=== PATIENT | female | born 1950 | race Two or more races ===

== ENCOUNTER → 2025-01-25 08:02 | Outpatient (CLI) | payer OTHER ==
[2025-01-25 09:04] LABS: URINE APPEARANCE Clear; URINE BILIRRUBIN Negative (NEGATIVE); URINE BLOOD Negative; URINE COLOR Yellow; URINE GLUCOSE Negative (NEGATIVE); URINE KETONE Negative (NEGATIVE); URINE LEUKOCYTE Trace; URINE NITRATE Negative; URINE PROTEIN Negative (NEGATIVE); URINE UROBILINOGEN 0.2 E.U./dl
[2025-01-25 09:09] LABS: URINE EPITHELIAL CELLS 3.9 uL (0.0-38.8)
[2025-01-25 09:11] LABS: HEMATOCRIT 39.6 % (36.0-45.00); HEMOGLOBIN 13.1 g/dL (12.0-15.00); MEAN CELL VOLUME 91.7 fL (80.00-100.00); MEAN CORPUSCULAR HEMOGLOBIN 30.4 pg (27.00-32.0); MEAN CORPUSCULAR HGB CONC 33.1 g/dl (32.0-36.0); PLATELET COUNT 186 K/uL (150-450); RED BLOOD COUNT 4.31 M/uL (4.00-6.00); RED CELL DISTRIBUTION WIDTH 14.7 % (11.5-14.5); URINE BACTERIA 3.6 uL (0.0-1933); URINE RBC 1.7 uL (0.0-20.8); URINE WBC 1.7 uL (0.0-23.2)
[2025-01-25 09:52] LABS: INR 1.06; PARTIAL THROMBOPLASTIN TIME 28.8 SECONDS (22.0-34.0); PROTHROMBIN TIME 11.5 SECONDS (9.0-11.5)
[2025-01-25 09:53] LABS: ALBUMIN 3.7 gm/dL (3.4-5.0); BILIRUBIN TOTAL 0.45 mg/dL (0.3-1.2); CALCIUM 9.6 mg/dL (8.5-10.1); CREATININE SERUM 1.14 mg/dL (0.55-1.02); GFR 46.46; GLOBULINA 3.4 G/DL (2.4-3.5); POTASSIUM 4.79 mEq/L (3.5-5.1); TOTAL PROTEIN 7.1 gm/dL (6.4-8.2)
== END | disposition home or self-care (01) ==
LOC: LAB 08:02
PROVIDERS: ATTEND Surgery
DX: K57.32 Diverticulitis of large intestine without perforation or abscess without bleeding (principal); K57.20 Diverticulitis of large intestine with perforation and abscess without bleeding; R10.32 Left lower quadrant pain

== ENCOUNTER 2025-01-29 09:30 | Inpatient (IN) | payer OTHER ==
[~2025-01-29] VITALS: Ht 165.1 cm; Wt 64.9 kg
[2025-01-29] MEDS ORDERED: AMIODARONE HCL400 MG PO (13:53)
[2025-01-29] MEDS ORDERED: ELIQUIS5 MG PO (13:53)
[2025-01-29] MEDS ORDERED: HYDROCHLOROTHIA25 MG PO (13:53)
[2025-01-29] MEDS ORDERED: TOPROL XL25 M1 PO (13:53)
[2025-02-04] MEDS ORDERED: CEFTRIAXONE SODIUM 2,000 MG VIAL ONE (07:52)
[2025-02-04] MEDS ORDERED: METRONIDAZOLE/SODIUM CHLORIDE 500 MG/100 ML PIGGYBACK IV ONE ×2 (07:53→16:27)
[2025-02-04] MEDS ORDERED: 0.9 % SODIUM CHLORIDE 1,000 ML IV SCH (12:45)
[2025-02-04] MEDS ORDERED: DEXTROSE 50 % IN WATER 0.5 G/ML VIAL IV PRN (12:45)
[2025-02-04] MEDS ORDERED: MORPHINE SULFATE 4 MG/ML CARTRIDGE IV PRN (12:45)
[2025-02-04] MEDS ORDERED: ENALAPRILAT DIHYDRATE 1.25 MG/ML VIAL IV PRN (12:45)
[2025-02-04] MEDS ORDERED: ONDANSETRON HCL 2 MG/ML VIAL IV PRN (12:45)
[2025-02-04] MEDS ORDERED: OxyCODONE HCL 5 MG TABLET (ROXICODONE) PO PRN (12:45)
[2025-02-04] MEDS ORDERED: HYOSCYAMINE SULFATE 0.125 MG TAB.SUBL SL SCH (13:00)
[2025-02-04] MEDS ORDERED: ENALAPRILAT DIHYDRATE 1.25 MG/ML VIAL IV ONE (13:25)
[2025-02-04] MEDS ORDERED: ACETAMINOPHEN 500 MG GEL..CAP PO SCH (14:00)
[2025-02-04] MEDS ORDERED: PROMETHAZINE HCL 25 MG/ML AMPUL ONE (14:31)
[2025-02-04] MEDS ORDERED: MEPERIDINE HCL/PF 25 MG/ML VIAL IM STA (14:32)
[2025-02-04] MEDS ORDERED: PROMETHAZINE HCL 25 MG/ML AMPUL IM STA (14:32)
[2025-02-04] MEDS ORDERED: GABAPENTIN 300 MG CAPSULE PO ONE (16:26)
[2025-02-04] MEDS ORDERED: HYOSCYAMINE SULFATE 0.125 MG TAB.SUBL ONE (16:26)
[2025-02-04] MEDS ORDERED: POLYETHYLENE GLYCOL 3350 17 GM BLIST.PACK PO SCH (17:00)
[2025-02-04] MEDS ORDERED: METRONIDAZOLE/SODIUM CHLORIDE 500 MG/100 ML PIGGYBACK IV SCH (17:00)
[2025-02-04] MEDS ORDERED: GABAPENTIN 300 MG CAPSULE PO SCH (17:00)
[2025-02-04 18:20] VITALS: BP 184/77; O2SAT 96
[2025-02-04] MEDS ORDERED: CELECOXIB 200 MG CAPSULE PO SCH (21:00)
[2025-02-04] MEDS ORDERED: METOPROLOL SUCCINATE 25 MG TAB.SR.24H PO SCH (21:00)
[2025-02-04] MEDS ORDERED: FAMOTIDINE/PF 20 MG/2 ML VIAL IV PUSH SCH (21:00)
[2025-02-05] VITALS: BP 162/71; O2SAT 92
[2025-02-05 07:04] LABS: HEMATOCRIT 33.9 % (36.0-45.00); HEMOGLOBIN 11.5 g/dL (12.0-15.00); MEAN CELL VOLUME 89.5 fL (80.00-100.00); MEAN CORPUSCULAR HEMOGLOBIN 30.4 pg (27.00-32.0); PLATELET COUNT 235 K/uL (150-450); RED BLOOD COUNT 3.78 M/uL (4.00-6.00)
[2025-02-05 07:49] LABS: CALCIUM 8.1 mg/dL (8.5-10.1); CREATININE SERUM 0.86 mg/dL (0.55-1.02); GFR 64.32; MAGNESIUM 1.5 mg/dL (1.8-2.4); PHOSPHOROUS 2.9 mg/dL (2.5-4.9); POTASSIUM 4.2 mEq/L (3.5-5.1)
[2025-02-05 08:47] VITALS: BP 105/61; O2SAT 95
[2025-02-05] MEDS ORDERED: HYDROCHLOROTHIAZIDE 25 MG TABLET PO SCH (09:00)
[2025-02-05] MEDS ORDERED: AMIODARONE HCL 200 MG TABLET PO SCH (09:00)
[2025-02-05] MEDS ORDERED: MAGNESIUM SULFATE IN WATER 50 ML IV NR (10:00)
[2025-02-05 16:00] VITALS: BP 109/47; O2SAT 94
[2025-02-05] MEDS ORDERED: GABAPENTIN 100 MG CAPSULE PO SCH (17:00)
[2025-02-05] MEDS ORDERED: ENOXAPARIN SODIUM 40 MG/0.4 ML SYRINGE SUBCUTANEO SCH (17:00)
[2025-02-05] MEDS ORDERED: GABAPENTIN 300 MG CAPSULE PO SCH (21:00)
[2025-02-06 02:01] VITALS: BP 123/73; O2SAT 100
[2025-02-06] MEDS ORDERED: ENOXAPARIN SODIUM 40 MG/0.4 ML SYRINGE SUBCUTANEO SCH (09:00)
[2025-02-06 09:24] VITALS: BP 160/66; O2SAT 95
[2025-02-06 16:00] VITALS: BP 170/88; O2SAT 95
[2025-02-06 16:13] LABS: BASO % 0.3 % (0.1-1.2); EOS % 2.5 % (0.7-7.0); HEMATOCRIT 33.6 % (34.1-44.9); HEMOGLOBIN 11.4 g/dL (11.2-15.7); LYMPH # 1.13 (1.18-3.74); LYMPH % 14.3 % (19.3-53.1); MEAN CORPUSCULAR HEMOGLOBIN 29.9 pg (25.6-32.2); MONO # 0.55 (0.24-0.82); NEUT # 5.98 (1.56-6.13); NEUT % 75.5 % (34.0-71.1); PLATELET COUNT 258 K/uL (163-369); RED BLOOD COUNT 3.81 M/uL (3.93-5.22); RED CELL DISTRIBUTION WIDTH 14.3 % (11.6-14.4)
[2025-02-06 16:39] LABS: CALCIUM 8.1 mg/dL (8.5-10.1); CREATININE SERUM 1.01 mg/dL (0.55-1.02); GFR 53.43; MAGNESIUM 2.1 mg/dL (1.8-2.4); PHOSPHOROUS 2.1 mg/dL (2.5-4.9); POTASSIUM 4.31 mEq/L (3.5-5.1)
[2025-02-06] MEDS ORDERED: AMLODIPINE BESYLATE 5 MG TABLET PO SCH (21:00)
[2025-02-06] MEDS ORDERED: AMLODIPINE BESYLATE 5 MG TABLET PO STA (21:00)
[2025-02-07 01:12] VITALS: BP 113/73; O2SAT 100
[2025-02-07 09:37] VITALS: BP 144/84; O2SAT 97
[2025-02-07] MEDS ORDERED: HYOSCYAMINE0.125 M1 SL (12:22)
[2025-02-07] MEDS ORDERED: INTESTINEX680 M1 PO (12:23)
== END 2025-02-07 13:59 | disposition home or self-care (01) | DRG 331 ==
LOC: O/R 02-04 06:10 → SURH 02-04 06:10
PROVIDERS: Internal Medicine Geriatric Medicine; ADMIT Surgery; ATTEND Surgery
PROC: 0DTN4ZZ Resection of Sigmoid Colon, Percutaneous Endoscopic Approach (ICD-10-PCS; principal; 2025-02-04)
PROC: 0DBP4ZZ Excision of Rectum, Percutaneous Endoscopic Approach (ICD-10-PCS; 2025-02-04)
PROC: 0DJD8ZZ Inspection of Lower Intestinal Tract, Via Natural or Artificial Opening Endoscopic (ICD-10-PCS; 2025-02-04)
DX: K57.20 Diverticulitis of large intestine with perforation and abscess without bleeding (principal); I48.0 Paroxysmal atrial fibrillation; I11.9 Hypertensive heart disease without heart failure

== ENCOUNTER 2025-02-16 14:24 | Emergency (ER) | payer OTHER ==
[~2025-02-16] VITALS: Ht 165.1 cm; Wt 63.5 kg
[~2025-02-16 14:24] MED LIST: AMIODARONE HCL400 MG PO; ELIQUIS5 MG PO; HYDROCHLOROTHIA25 MG PO; HYOSCYAMINE0.125 M1 SL; INTESTINEX680 M1 PO; TOPROL XL25 M1 PO
[2025-02-16] MEDS ORDERED: TRAM1TAB98 (15:07)
[2025-02-16] MEDS ORDERED: ZOFRAN8 MG (15:07)
[2025-02-16] MEDS ORDERED: 0.9 % SODIUM CHLORIDE 1,000 ML IV SCH (16:30)
[2025-02-16 17:06] LABS: PH,URINE 6.5 (5.0-8.0); URINE APPEARANCE Clear; URINE BILIRRUBIN Small (NEGATIVE); URINE BLOOD Negative; URINE COLOR Dark Yellow; URINE GLUCOSE Negative (NEGATIVE); URINE KETONE Trace (NEGATIVE); URINE LEUKOCYTE Trace; URINE NITRATE Negative; URINE PROTEIN Negative (NEGATIVE)
[2025-02-16 17:08] LABS: URINE BACTERIA 6.1 uL (0.0-1933); URINE EPITHELIAL CELLS 18.3 uL (0.0-38.8); URINE RBC 15.4 uL (0.0-20.8)
[2025-02-16 17:12] LABS: CALCIUM 10.1 mg/dL (8.5-10.1); CREATININE SERUM 1.01 mg/dL (0.55-1.02); GFR 53.43; HEMATOCRIT 39.9 % (34.1-44.9); HEMOGLOBIN 13.3 g/dL (11.2-15.7); POTASSIUM 4.99 mEq/L (3.5-5.1); RED BLOOD COUNT 4.38 M/uL (3.93-5.22)
[2025-02-16 17:13] LABS: BASO % 0.5 % (0.1-1.2); EOS # 0.09 (0.04-0.54); LYMPH # 1.39 (1.18-3.74); LYMPH % 15.8 % (19.3-53.1); MEAN CORPUSCULAR HEMOGLOBIN 30.4 pg (25.6-32.2); MONO # 0.76 (0.24-0.82); MONO % 8.6 % (4.7-12.5); NEUT # 6.46 (1.56-6.13); NEUT % 73.3 % (34.0-71.1); PLATELET COUNT 374 K/uL (163-369); RED CELL DISTRIBUTION WIDTH 15.7 % (11.6-14.4)
[2025-02-16 17:58] LABS: URINE CAST 0.29 uL (0.0-1.40); URINE WBC 1.1 uL (0.0-23.2)
== END 2025-02-16 21:35 | disposition home or self-care (01) ==
LOC: ER 14:56
PROVIDERS: Emergency Medicine
DX: R10.9 Unspecified abdominal pain (principal); K57.32 Diverticulitis of large intestine without perforation or abscess without bleeding
CPT/HCPCS: 36415; 74177; 96365; 96366; 99284; J7030; Q9965

== ENCOUNTER 2025-02-20 10:31 | Inpatient (IN) | payer OTHER ==
[~2025-02-20] VITALS: Ht 162.6 cm; Wt 63.0 kg
[~2025-02-20 10:31] MED LIST changes: +TRAM1TAB98; +ZOFRAN8 MG
--- NOTE | 2025-02-20 11:16 | NUR ---
PT ALERTA Y ORIENTADA X3. REFIERE NICOLE SIDO REFERIDA POR A PASAR POR COOKIE DE EMERGENCIAS POR DESIDRATACION
[2025-02-20] MEDS ORDERED: ONDANSETRON HCL 4 MG in 0.9 % SODIUM CHLORIDE 50 ML IV PRN (12:00)
[2025-02-20] MEDS ORDERED: 0.9 % SODIUM CHLORIDE 1,000 ML IV SCH (12:00)
[2025-02-20] MEDS ORDERED: FAMOTIDINE/PF 20 MG in 0.9 % SODIUM CHLORIDE 8 ML IV PUSH NR (13:00)
[2025-02-20] MEDS ORDERED: ENALAPRILAT DIHYDRATE 1.25 MG/ML VIAL IV PRN (14:00)
[2025-02-20 20:31] VITALS: BP 163/81; O2SAT 98
[2025-02-20] MEDS ORDERED: METOPROLOL SUCCINATE 25 MG TAB.SR.24H PO SCH (21:00)
[2025-02-20] MEDS ORDERED: FAMOTIDINE/PF 20 MG in 0.9 % SODIUM CHLORIDE 8 ML IV PUSH SCH (21:00)
[2025-02-20 21:10] VITALS: BP 158/76; O2SAT 97
[2025-02-20 22:13] LABS: PH,URINE 5.5 (5.0-8.0); URINE APPEARANCE Cloudy; URINE BILIRRUBIN Small (NEGATIVE); URINE BLOOD Large; URINE COLOR Dark Yellow; URINE GLUCOSE Negative (NEGATIVE); URINE KETONE Negative (NEGATIVE); URINE LEUKOCYTE Trace; URINE NITRATE Negative; URINE PROTEIN 30 (NEGATIVE); URINE UROBILINOGEN 0.2 E.U./dl
[2025-02-20 22:17] LABS: URINE BACTERIA 77.1 uL (0.0-1933); URINE EPITHELIAL CELLS 22.4 uL (0.0-38.8); URINE RBC 4703.7 uL (0.0-20.8); URINE WBC 28.8 uL (0.0-23.2)
[2025-02-20 22:36] LABS: URINE CAST 0.88 uL (0.0-1.40)
[2025-02-21 00:26] VITALS: BP 151/86; O2SAT 98
[2025-02-21 07:57] VITALS: BP 122/61; O2SAT 96
[2025-02-21 08:15] LABS: INR 1.05; PARTIAL THROMBOPLASTIN TIME 30.5 SECONDS (22.0-34.0); PROTHROMBIN TIME 11.4 SECONDS (9.0-11.5)
[2025-02-21 08:22] LABS: ALBUMIN 3.4 gm/dL (3.4-5.0); BILIRUBIN TOTAL 6.49 mg/dL (0.3-1.2); BILIRUBIN,CONJUGATED 5.01 mg/dL (0.0-0.2); BILIRUBIN,UNCONJUGATED 1.48 mg/dL (0.0-0.6); CALCIUM 8.8 mg/dL (8.5-10.1); CREATININE SERUM 1.09 mg/dL (0.55-1.02); GFR 48.93; GLOBULINA 3.4 G/DL (2.4-3.5); PHOSPHOROUS 4.2 mg/dL (2.5-4.9); POTASSIUM 3.79 mEq/L (3.5-5.1); TOTAL PROTEIN 6.8 gm/dL (6.4-8.2)
[2025-02-21 08:24] LABS: C-REACTIVE PROTEIN 0.58 MG/DL (0.00-0.29)
[2025-02-21 08:42] LABS: BASO % 0.7 % (0.1-1.2); EOS # 0.15 (0.04-0.54); EOS % 1.7 % (0.7-7.0); HEMOGLOBIN 12.5 g/dL (11.2-15.7); LYMPH # 1.44 (1.18-3.74); LYMPH % 16.2 % (19.3-53.1); MEAN CORPUSCULAR HEMOGLOBIN 30.2 pg (25.6-32.2); MONO # 1.16 (0.24-0.82); MONO % 13.1 % (4.7-12.5); NEUT # 6.02 (1.56-6.13); NEUT % 67.8 % (34.0-71.1); PLATELET COUNT 333 K/uL (163-369); RED BLOOD COUNT 4.14 M/uL (3.93-5.22); RED CELL DISTRIBUTION WIDTH 16.2 % (11.6-14.4)
[2025-02-21] MEDS ORDERED: ENOXAPARIN SODIUM 40 MG/0.4 ML SYRINGE SUBCUTANEO SCH (09:00)
[2025-02-21 10:11] LABS: ERYTHROCYTE SEDIMENTATION RATE 68 mm/hr (0-30)
[2025-02-21 10:31] LABS: FERRITIN 380.8 NG/ML (8-252)
[2025-02-21 15:30] VITALS: BP 137/75; O2SAT 96
[2025-02-22 00:55] VITALS: BP 112/62; O2SAT 95
[2025-02-22 08:55] VITALS: BP 131/81; O2SAT 100
[2025-02-22 12:31] LABS: ALBUMIN 3.3 gm/dL (3.4-5.0); BILIRUBIN TOTAL 8.97 mg/dL (0.3-1.2); BILIRUBIN,CONJUGATED 7.25 mg/dL (0.0-0.2); BILIRUBIN,UNCONJUGATED 1.72 mg/dL (0.0-0.6); TOTAL PROTEIN 6.9 gm/dL (6.4-8.2)
[2025-02-22 12:36] LABS: TSH 0.034 uIU/mL (0.358-3.74)
[2025-02-22 16:00] VITALS: BP 162/73; O2SAT 99
[2025-02-22] MEDS ORDERED: URSODIOL 300 MG CAPSULE PO SCH (18:25)
[2025-02-23 00:28] VITALS: BP 127/63; O2SAT 100
[2025-02-23 06:52] LABS: EOS # 0.28 (0.04-0.54); EOS % 4.1 % (0.7-7.0); HEMATOCRIT 33.8 % (34.1-44.9); HEMOGLOBIN 11.2 g/dL (11.2-15.7); LYMPH # 1.44 (1.18-3.74); LYMPH % 21.2 % (19.3-53.1); MEAN CORPUSCULAR HEMOGLOBIN 29.4 pg (25.6-32.2); MONO # 1.02 (0.24-0.82); NEUT # 3.93 (1.56-6.13); NEUT % 58.1 % (34.0-71.1); PLATELET COUNT 314 K/uL (163-369); RED BLOOD COUNT 3.81 M/uL (3.93-5.22); RED CELL DISTRIBUTION WIDTH 16.4 % (11.6-14.4)
[2025-02-23 07:35] LABS: ALBUMIN 2.9 gm/dL (3.4-5.0); BILIRUBIN TOTAL 7.81 mg/dL (0.3-1.2); BILIRUBIN,CONJUGATED 6.29 mg/dL (0.0-0.2); BILIRUBIN,UNCONJUGATED 1.52 mg/dL (0.0-0.6); CALCIUM 8.5 mg/dL (8.5-10.1); CREATININE SERUM 0.94 mg/dL (0.55-1.02); GFR 58.05; GLOBULINA 3.2 G/DL (2.4-3.5); MAGNESIUM 1.9 mg/dL (1.8-2.4); PHOSPHOROUS 3.2 mg/dL (2.5-4.9); POTASSIUM 3.71 mEq/L (3.5-5.1); TOTAL PROTEIN 6.1 gm/dL (6.4-8.2)
[2025-02-23 08:00] VITALS: BP 169/84; O2SAT 96
[2025-02-23] MEDS ORDERED: DIPHENHYDRAMINE HCL 50 MG CAPSULE PO PRN (08:00)
[2025-02-23 16:00] VITALS: BP 187/72; O2SAT 100
[2025-02-23 20:21] LABS: T4 TOTAL 20.95 UG/DL (4.8-13.9)
[2025-02-24 00:49] VITALS: BP 134/76; O2SAT 100
[2025-02-24 08:00] VITALS: BP 169/82; O2SAT 99
[2025-02-24] MEDS ORDERED: LOSARTAN POTASSIUM 25 MG TABLET PO SCH (09:00)
[2025-02-24] MEDS ORDERED: ENOXAPARIN SODIUM 60 MG/0.6 ML SYRINGE SUBCUTANEO SCH (09:00)
[2025-02-24 09:40] LABS: ALBUMIN 3.3 gm/dL (3.4-5.0); BILIRUBIN TOTAL 9.02 mg/dL (0.3-1.2); BILIRUBIN,CONJUGATED 7.32 mg/dL (0.0-0.2); BILIRUBIN,UNCONJUGATED 1.7 mg/dL (0.0-0.6); TOTAL PROTEIN 6.9 gm/dL (6.4-8.2)
[2025-02-24 17:18] VITALS: BP 191/80; O2SAT 99
[2025-02-25 00:58] VITALS: BP 133/66; O2SAT 98
[2025-02-25 05:07] LABS: ANTI THYROID PEROXIDASE 14 IU/mL (0-34)
[2025-02-25] MEDS ORDERED: SODIUM CHLORIDE 0.45 % 1,000 ML IV SCH (05:15)
[2025-02-25 07:07] LABS: BASO % 0.7 % (0.1-1.2); EOS # 0.35 (0.04-0.54); EOS % 5.2 % (0.7-7.0); HEMATOCRIT 30.7 % (34.1-44.9); HEMOGLOBIN 10.5 g/dL (11.2-15.7); LYMPH # 1.36 (1.18-3.74); LYMPH % 20.2 % (19.3-53.1); MEAN CORPUSCULAR HEMOGLOBIN 30.5 pg (25.6-32.2); NEUT # 3.93 (1.56-6.13); NEUT % 58.4 % (34.0-71.1); PLATELET COUNT 304 K/uL (163-369); RED BLOOD COUNT 3.44 M/uL (3.93-5.22); RED CELL DISTRIBUTION WIDTH 16.5 % (11.6-14.4)
[2025-02-25 07:39] LABS: ALBUMIN 2.7 gm/dL (3.4-5.0); BILIRUBIN TOTAL 7.88 mg/dL (0.3-1.2); BILIRUBIN,CONJUGATED 6.42 mg/dL (0.0-0.2); BILIRUBIN,UNCONJUGATED 1.46 mg/dL (0.0-0.6); CALCIUM 8.7 mg/dL (8.5-10.1); CREATININE SERUM 0.83 mg/dL (0.55-1.02); GFR 67.02; MAGNESIUM 1.8 mg/dL (1.8-2.4); PHOSPHOROUS 3.7 mg/dL (2.5-4.9); POTASSIUM 3.45 mEq/L (3.5-5.1); TOTAL PROTEIN 5.8 gm/dL (6.4-8.2)
[2025-02-25 07:49] LABS: MONO % 14.9 % (4.7-12.5)
[2025-02-25] MEDS ORDERED: LOSARTAN POTASSIUM 50 MG TABLET PO SCH (09:00)
[2025-02-25] MEDS ORDERED: POTASSIUM CHLORIDE 20MEQ/100ML H2O PB IV NR (10:00)
[2025-02-25 11:12] LABS: ebv vca igg 61.9 U/mL (0.0-17.9); vca igm ab < 36.0 U/mL (0.0-35.9)
[2025-02-25 16:52] VITALS: BP 157/76; O2SAT 100
[2025-02-26 00:38] VITALS: BP 103/58; O2SAT 95
[2025-02-26 08:17] LABS: ALBUMIN 2.8 gm/dL (3.4-5.0); BILIRUBIN TOTAL 8.72 mg/dL (0.3-1.2); BILIRUBIN,CONJUGATED 7.16 mg/dL (0.0-0.2); BILIRUBIN,UNCONJUGATED 1.56 mg/dL (0.0-0.6); FREE TRIODOTIRONINE 1.94 pg/ml (2.18-3.98); TOTAL PROTEIN 5.9 gm/dL (6.4-8.2)
[2025-02-26 08:23] LABS: T4 FREE 3.05 NG/ML (0.76-1.46); T4 TOTAL 21.53 UG/DL (4.8-13.9); TSH 0.03 uIU/mL (0.358-3.74)
[2025-02-26 11:12] LABS: CMV PCR Negative (Negative)
[2025-02-26 13:08] LABS: SMOOTH MUSCLE ANTIBODY 9 Units (0-19)
[2025-02-26 16:05] VITALS: BP 169/82; O2SAT 98
[2025-02-26] MEDS ORDERED: APIXABAN 5 MG TABLET PO SCH (21:00)
[2025-02-27 00:37] VITALS: BP 106/62; O2SAT 99
[2025-02-27 05:07] LABS: hav igm Negative (Negative); hcv Non Reactive (Non Reactive); hep b c Negative (Negative); hep b s ag Negative (Negative)
[2025-02-27 08:19] VITALS: BP 147/79; O2SAT 96
[2025-02-27 09:11] LABS: ALBUMIN 2.8 gm/dL (3.4-5.0); BILIRUBIN TOTAL 8.71 mg/dL (0.3-1.2); BILIRUBIN,CONJUGATED 7.26 mg/dL (0.0-0.2); BILIRUBIN,UNCONJUGATED 1.45 mg/dL (0.0-0.6)
[2025-02-27] MEDS ORDERED: COZAAR50 MG PO (11:12)
[2025-02-27] MEDS ORDERED: ELIQUIS5 MG PO (11:12)
[2025-02-27] MEDS ORDERED: TOPROL XL25 M1 PO (11:13)
[2025-02-27] MEDS ORDERED: ursodiol PO (11:14)
== END 2025-02-27 14:00 | disposition home or self-care (01) | DRG 441 ==
LOC: ER 10:37 → SURH 12:24
PROVIDERS: Internal Medicine Endocrinology, Diabetes & Metabolism; Internal Medicine Geriatric Medicine; ADMIT Surgery; ATTEND Surgery
PROC: 4A12X45 Monitoring of Cardiac Electrical Activity, Ambulatory, External Approach (ICD-10-PCS; 2025-02-20)
PROC: B24BYZZ Ultrasonography of Heart with Aorta using Other Contrast (ICD-10-PCS; principal; 2025-02-24)
DX: R17 Unspecified jaundice (principal); K83.1 Obstruction of bile duct; I48.91 Unspecified atrial fibrillation; I10 Essential (primary) hypertension; E05.90 Thyrotoxicosis, unspecified without thyrotoxic crisis or storm